=== PATIENT | female | born 1960 | race Caucasian/White ===

== ENCOUNTER 2022-04-01 17:58 | Emergency (ER) | payer BC ==
[2022-04-01] MEDS ORDERED: Sodium Chloride 0.9% 2.5 ML Syringe FLUSH PRN (21:54)
[2022-04-01] MEDS ORDERED: Sodium Chloride 0.9% 10 ML Syringe FLUSH PRN (21:54)
[2022-04-01] MEDS ORDERED: Ondansetron 4 MG/2 ML SDV IVPUSH ONE (21:54)
[2022-04-01] MEDS ORDERED: Sodium Chloride 0.9% 1,000 ML IV ONE (21:54)
[2022-04-01 22:55] LABS: BLOOD UREA NITROGEN,BUN 9 mg/dL (7.0-18.0); CARBON DIOXIDE,CO2 25.8 mmol/L (21.0-32.0); CHLORIDE,CL 102 mmol/L (98-107); GLUCOSE RANDOM 100 mg/dL (74-106); LIPASE 77 U/L (73-393); POTASSIUM,K 3.9 mmol/L (3.5-5.1); SODIUM,NA 141 mmol/L (136-145)
[2022-04-01 23:01] LABS: ESTIMATED GFR 100 mL/min (>60)
[2022-04-01] MEDS ORDERED: Bisacodyl 5 MG Tab PO ONE (23:26)
[2022-04-01] MEDS ORDERED: Bisacodyl 10 MG Supp RECTAL ONE (23:26)
[2022-04-01 23:54] VITALS: BP 135/68; PULSE 86
== END 2022-04-01 23:53 ==
LOC: MW.ED 17:58
DX: K56.41 Fecal impaction (principal); E86.0 Dehydration; D72.829 Elevated white blood cell count, unspecified; Z88.1 Allergy status to other antibiotic agents; Z88.5 Allergy status to narcotic agent; Z88.6 Allergy status to analgesic agent; Z91.040 Latex allergy status; Z88.0 Allergy status to penicillin
CPT/HCPCS: 36415; 74176; 80053; 81001; 83690; 83735; 85025; 96361; 96374; 99284; A9270; J2405; J3490; J7030

== ENCOUNTER 2022-04-02 13:03 | Emergency (ER) | payer BC ==
[2022-04-02] MEDS ORDERED: Magnesium Citrate Solution 296 ML Bottle PO STA (16:10)
[2022-04-02] MEDS ORDERED: Lactulose Soln 10 GM/15 ML 15 ML UD Cup PO ONE (16:10)
[2022-04-02] MEDS ORDERED: Lactated Ringers 1,000 ML IV STA (16:11)
[2022-04-02] MEDS ORDERED: Ketorolac 30 MG/ML SDV IVPUSH ONE (17:02)
[2022-04-02 17:09] LABS: CARBON DIOXIDE,CO2 23.2 mmol/L (21.0-32.0); POTASSIUM,K 3.6 mmol/L (3.5-5.1)
[2022-04-02] MEDS ORDERED: Ondansetron 4 MG/2 ML SDV IVPUSH ONE ×2 (17:42→19:37)
[2022-04-02] MEDS ORDERED: Cephalexin 500 MG Cap PO STA (17:43)
[2022-04-02] MEDS ORDERED: Iopamidol 755 Mg/ML 100 ML Bottle IVPUSH ONE (18:11)
[2022-04-02] MEDS ORDERED: fentaNYL 50 MCG/ML SDV IVPUSH ONE (19:37)
[2022-04-02] MEDS ORDERED: Sodium Chloride 0.9% 1,000 ML IV ONE (19:37)
[2022-04-02] MEDS ORDERED: metroNIDAZOLE/Normal Saline 500 MG in Premix Bag 1 BAG IV ONE (19:39)
[2022-04-02] MEDS ORDERED: Levofloxacin/Dextrose 5%-Water 750 MG in Premix Bag 1 BAG IV ONE (19:39)
[2022-04-03 01:35] VITALS: BP 93/55; PULSE 92
[2022-04-03] MEDS ORDERED: Ondansetron 4 MG/2 ML SDV IVPUSH ONE (03:08)
[2022-04-03] MEDS ORDERED: fentaNYL 50 MCG/ML SDV IVPUSH ONE (03:08)
== END 2022-04-03 03:15 ==
LOC: MW.ED 13:03
DX: N39.0 Urinary tract infection, site not specified (principal); K59.00 Constipation, unspecified; Z88.1 Allergy status to other antibiotic agents; Z88.5 Allergy status to narcotic agent; Z88.8 Allergy status to other drugs, medicaments and biological substances; Z88.0 Allergy status to penicillin; Z91.040 Latex allergy status; Z20.822 Contact with and (suspected) exposure to COVID-19
CPT/HCPCS: 36415; 74019; 74177; 80053; 81001; 83605; 85025; 87040; 87635; 96361; 96365; 96366; 96367; 96375; 96376; 99285; A9270; J1885; J1956; J2405; J3010; J3490; J7030; J7120; Q9967; U0002

== ENCOUNTER 2022-08-04 06:56 | Day surgery (SDC) | payer BC ==
[~2022-08-04 06:56] MED LIST: Lactated Ringers 1,000 ML IV SCH
[2022-08-04] MEDS ORDERED: Propofol 200 MG/20 ML SDV ONE (08:47)
[2022-08-04] MEDS ORDERED: Lidocaine 2% 5 ML SDV ONE (08:47)
[2022-08-04 09:58] VITALS: BP 104/56; PULSE 72
== END 2022-08-04 09:40 | disposition home or self-care (01) ==
LOC: MW.SDS 06:56
PROVIDERS: ATTEND Surgery
DX: K44.9 Diaphragmatic hernia without obstruction or gangrene (principal); K29.70 Gastritis, unspecified, without bleeding; K22.89 Other specified disease of esophagus; M19.90 Unspecified osteoarthritis, unspecified site; E78.00 Pure hypercholesterolemia, unspecified; F17.210 Nicotine dependence, cigarettes, uncomplicated; Z88.0 Allergy status to penicillin; Z88.1 Allergy status to other antibiotic agents; Z88.8 Allergy status to other drugs, medicaments and biological substances; Z91.040 Latex allergy status; Z79.899 Other long term (current) drug therapy; Z87.11 Personal history of peptic ulcer disease; Z90.49 Acquired absence of other specified parts of digestive tract
CPT/HCPCS: 43239; J2704; J7120; J3490